=== PATIENT | female | born 1970 | race African-American/Black ===

== ENCOUNTER 2018-09-10 12:05 | Inpatient (IN) | payer OTHER ==
[2018-09-10 14:43] VITALS: BMI 32.1
--- NOTE | 2018-09-10 16:34 | HP ---
COWS - Scale Resting Pulse: 0= MO 80 or Below Sweatin=Flushed/Facial Moisture (Increased facial moisture) Restless Observation: 0= Sits Still Pupil Size: 2= Moderately Dilated (Pupils = 4 mm) Bone or Joint Aches: 1= Mild Discomfort Runny Nose/ Eye Tearin= Nasal Congestion GI Upset > 30mins: 1= Stomach Cramp Tremor Observation: 4= Gross Tremor/Twitching Yawning Observation: 1= 1-2x During Session Anxiety or Irritability: 1=Feels Anxious/Irritable Goose Flesh Skin: 0=Smooth Skin COWS Score: 13 CIWA Score Nausea/Vomitin (C/o abdominal cramping) Muscle Tremors: 4-Moderate,w/Arms Extend Anxiety: 1-Mildly Anxious Agitation: 1-Slight > Activity Paroxysmal Sweats: 3 (Increased facial moisture) Orientation: 0-Oriented Tacttile Disturbances: 0-None Auditory Disturbances: 0-None Visual Disturbances: 0-None Headache: 0-None Present CIWA-Ar Total Score: 12 - Admission Criteria OAS Guidelines: Admission for Medically Managed Detox: Requires at least one of the followin. CIWA greater than 12 2. Seizures within the past 24 hours 3. Delirium tremens within the past 24 hours 4. Hallucinations within the past 24 hours 5. Acute intervention needed for co occurring medical disorder 6. Acute intervention needed for co occurring psychiatric disorder 7. Severe withdrawal that cannot be handled at a lower level of care (continued vomiting, continued diarrhea, abnormal vital signs) requiring intravenous medication and/or fluids 8. Patient presents the following: CIWA greater than 12 Admission Criteria Met: Admission criteria met Admission ROS [facility] Chief Complaint: Having alcohol and heroin withdrawal Allergies/Adverse Reactions: Allergies Allergy/AdvReac Type Severity Reaction Status Date / Time No Known Allergies Allergy Verified 09/10/18 14:34 History of Present Illness: 48 yo presents with heroin and alcohol withdrawal requesting detox. Heroin use began at age 47. Current use x 4 months. (Nasal. No Narcan Kit at home) Alcohol use began at age 16. Current use x 6 months. Cocaine/Crack use began at age 16. Smokes Marijuana use began at age 16. Usage 1-2 x/month. Benzo - Xanax use recent. "A piece of a pill" 1-2 times a month Nicotine use began at age 13. Currently smokes 1 PPD. Denies blackouts, seizures, or overdoses. UTOX + for THC, MEAGAN, FEN, MOP, OXY, BZO PMHx: Denies significant pMH MHHx: Denies depression. Denies thoughts of harming self or others. Search Terms: George Armenta, 1970 Search Date: 09/10/2018 04:33:19 PM The Drug Utilization Report below displays all of the controlled substance prescriptions, if any, that your patient has filled in the last twelve months. The information displayed on this report is compiled from pharmacy submissions to the Department, and accurately reflects the information as submitted by the pharmacies. This report was requested by: Jennifer Mehta | Reference #: [id number] There are no results for the search terms that you entered. Search Terms: George Armenta, 1970 Search Date: 09/10/2018 04:33:41 PM States Searched: [place], [place], [place], [place], [place], [place], [place] The Drug Utilization Report below displays the controlled substance prescriptions, if any, that were dispensed in the indicated state(s). The information displayed on this report is compiled from requests submitted to other states' PMPs, and accurately reflects the information as returned by them. Blank joseph indicate data not provided by other state. This report was requested by: Jennifer Mehta | Reference #: [id number] Exam Limitations: No Limitations - Ebola screening Have you traveled outside of the country in the last 21 days: No Have you had contact with anyone from an Ebola affected area: No Have you been sick,other than usual withdrawal symptoms: No (Denies recent measles exposure) Do you have a fever: No - Review of Systems Constitutional: Chills, Diaphoresis EENT: reports: Nose Congestion Respiratory: reports: No Symptoms reported Cardiac: reports: No Symptoms Reported GI: reports: Nausea : reports: No Symptoms Reported Musculoskeletal: reports: No Symptoms Reported Integumentary: reports: No Symptoms Reported Neuro: reports: No Symptoms reported Endocrine: reports: No Symptoms Reported Hematology: reports: Anemia (Iron deficiencey) Psychiatric: reports: Judgement Intact, Orientated x3, Agitated, Anxious Patient History - Patient Medical History Hx Anemia: Yes Hx Asthma: No Hx Chronic Obstructive Pulmonary Disease (COPD): No Hx Cancer: No Hx Cardiac Disorders: No Hx Congestive Heart Failure: No Hx Hypertension: No Hx Hypercholesterolemia: No Hx Pacemaker: No HX Cerebrovascular Accident: No Hx Seizures: No Hx Dementia: No Hx Diabetes: No Hx Gastrointestinal Disorders: No Hx Liver Disease: No Hx Genitourinary Disorders: No Hx Renal Disease (ESRD): No Hx Thyroid Disease: No Hx Human Immunodeficiency Virus (HIV): No Hx Hepatitis C: No Hx Depression: No - Patient Surgical History Past Surgical History: Yes Hx Neurologic Surgery: No Hx Cataract Extraction: No Hx Cardiac Surgery: No Hx Lung Surgery: No Hx Breast Surgery: No Hx Breast Biopsy: No Hx Abdominal Surgery: No Hx Appendectomy: No Hx Cholecystectomy: No Hx Genitourinary Surgery: No Hx Section: Yes Hx Orthopedic Surgery: No Hx Hysterectomy: No Anesthesia Reaction: No - PPD History Previous Implant?: Yes Documented Results: Negative w/o proof Implanted On Prior R Admission?: No PPD to be Administered?: Yes - Reproductive History Patient is a Female of Child Bearing Age (11 -55 yrs old): Yes Last Menstrual Period: 05/03/12 Patient : No - Smoking Cessation Smoking history: Current every day smoker Have you smoked in the past 12 months: Yes Aproximately how many cigarettes per day: 20 Hx Chewing Tobacco Use: No Initiated information on smoking cessation: Yes 'Breaking Loose' booklet given: 09/10/18 - Substance & Tx. History Hx Alcohol Use: Yes Hx Substance Use: Yes Substance Use Type: Alcohol, Cocaine, Marijuana Hx Substance Use Treatment: Yes (detox, rehab, outpatient) - Substances abused Heroin Substance route: Inhalation Frequency: Daily Amount used: 1-2 bundles Age of first use: 47 Date of last use: 09/10/18 Crack Substance route: Smoking Frequency: Daily Amount used: 200-300 usd daily Age of first use: 16 Date of last use: 09/09/18 Alcohol Substance route: Oral Frequency: Daily Amount used: 1.5 pints patricio, a paxck of beer Age of first use: 16 Date of last use: 09/10/18 Admission Physical Exam BHS - Vital Signs Vital Signs: Vital Signs - 24 hr 09/10/18 14:37 Temperature 97.2 F L Pulse Rate 57 L Respiratory 16 Rate Blood Pressure 126/76 - Physical General Appearance: Yes: Mild Distress, Obese, Tremorous, Sweating, Anxious HEENTM: Yes: EOMI, Hearing grossly Normal, Normocephalic, CHAD (Pupils = 4 mm), Pharynx Normal Respiratory: Yes: Lungs Clear, Normal Breath Sounds, No Respiratory Distress Neck: Yes: No masses,lesions,Nodules, Supple Breast: Yes: Breast Exam Deferred Cardiology: Yes: Regular Rhythm, S1, S2, Bradycardia (HR: 56) Abdominal: Yes: Soft, Increased Bowel Sounds, Protuberent (Increased abdominal adiposity) Genitourinary: Yes: Within Normal Limits Back: Yes: Normal Inspection Musculoskeletal: Yes: full range of Motion, Gait Steady Extremities: Yes: Normal Capillary Refill, Normal Range of Motion, Tremors ( Tremors of hands increase w/ arms elevated) Neurological: Yes: medication aid II-XII NML intact, Alert, Motor Strength 5/5 Integumentary: Yes: Normal Color, Warm Lymphatic: Yes: Within Normal Limits - Diagnostic (1) Alcohol dependence with uncomplicated withdrawal Current Visit: Yes Status: Acute (2) Opioid dependence with withdrawal Current Visit: Yes Status: Acute (3) Nicotine dependence, uncomplicated Current Visit: Yes Status: Chronic Qualifiers: Nicotine product type: cigarettes Qualified Code(s): F17.210 - Nicotine dependence, cigarettes, uncomplicated (4) Cocaine dependence, uncomplicated Current Visit: Yes Status: Acute (5) Obesity (BMI 30.0-34.9) Current Visit: Yes Status: Chronic (6) Bradycardia Current Visit: Yes Status: Chronic Cleared for Admission S - Detox or Rehab [facility] Level of Care: Medically Managed Detox Regimen/Protocol: Methadone/Librium Claeared for Rehab Admission: No Breathalyzer - Breathalyzer Breathalyzer: 0 Urine Drug Screen - Test Device Lot number: [id number] Expiration date: 05/10/20 - Control Is test valid?: Yes - Results Drug screen NEGATIVE: No Urine drug screen results: THC-Marijuana, MEAGAN-Cocaine, FEN-Fentanyl, MOP-Opiates , OXY-Oxycodone, BZO-Benzodiazepines Inpatient Rehab Admission - Rehab Decision to Admit Inpatient rehab admission?: No
[2018-09-11] MEDS ORDERED: METHADONE HCL 10 MG TABLET (FOR DETOX USE ONLY) PO ONE ×2 (00:09→10:00)
[2018-09-11] MEDS ORDERED: ACETAMINOPHEN 325 MG TABLET (FP) PO PRN (00:09)
[2018-09-11] MEDS ORDERED: MAGNESIUM CITRATE 300 ML BOTTLE PO PRN (00:09)
[2018-09-11] MEDS ORDERED: MAG HYDROX/AL HYDROX/SIMETH 30 ML UNIT-DOSE CUP PO PRN (00:09)
[2018-09-11] MEDS ORDERED: NICOTINE POLACRILEX 2 MG GUM BUC PRN (00:09)
[2018-09-11] MEDS ORDERED: MAGNESIUM HYDROX 2400MG/30ML ORAL SUSPENSION 30 ML CUP PO PRN (00:09)
[2018-09-11] MEDS ORDERED: BISMUTH SUBSALICYLATE 524 MG/30 ML UD PO PRN (00:09)
[2018-09-11] MEDS ORDERED: MENTHOL/PHENOL 1 EACH UD MM PRN (00:09)
[2018-09-11] MEDS: chlordiazePOXIDE HCL 10 MG CAPSULE PO PRN (00:54)
[2018-09-11] MEDS: chlordiazePOXIDE HCL 25 MG CAPSULE PO SCH ×3 (06:10→21:30)
[2018-09-11] MEDS: PRENATAL VITAMINS W/ FOLIC ACID TABLET (FP) PO SCH (10:53)
[2018-09-11] MEDS: NICOTINE 21 MG/24 HOURS TOPICAL PATCH TD SCH (10:53)
[2018-09-11] MEDS: IBUPROFEN 400 MG TABLET (FP) PO PRN (10:56)
[2018-09-11] MEDS: METHOCARBAMOL 500 MG TABLET PO PRN (10:56)
--- NOTE | 2018-09-11 12:49 | PN ---
[facility] CIWA - CIWA Score Nausea/Vomitin-Mild Nausea/No Vomiting Muscle Tremors: 2 Anxiety: 1-Mildly Anxious Agitation: 1-Slight > Activity Paroxysmal Sweats: 1-Minimal Palms Moist Orientation: 0-Oriented Tacttile Disturbances: 0-None Auditory Disturbances: 0-None Visual Disturbances: 0-None Headache: 1-Very Mild CIWA-Ar Total Score: 7 S COWS - Scale Resting Pulse: 1= [place] 81-100 Sweatin= Chills/Flushing Restless Observation: 1= Difficult to Sit Still Pupil Size: 0= Normal to Room Light Bone or Joint Aches: 1= Mild Discomfort Runny Nose/ Eye Tearin= Nasal Congestion GI Upset > 30mins: 1= Stomach Cramp Tremor Observation of Outstretched Hands: 0= None Yawning Observation: 0= None Anxiety or Irritability: 0= None Goose Flesh Skin: 0=Smooth Skin COWS Score: 6 S Progress Note (SOAP) Subjective: pt here for polysubstance use- pt is on alcohol and heroin detox protocols O: Vital Signs - 24 hr 09/10/18 09/11/18 09/11/18 14:37 00:29 03:30 Temperature 97.2 F L 98.5 F Pulse Rate 57 L 60 Respiratory 16 18 18 Rate Blood Pressure 126/76 134/89 09/11/18 09/11/18 06:09 09:05 Temperature 97 F L 97.2 F L Pulse Rate 41 L 53 L Respiratory 18 16 Rate Blood Pressure 152/92 132/82 a/p: continue alcohol and heroin detox protocols- pt to consider suboxone treatment
--- NOTE | 2018-09-11 13:46 | EKG ---
Test Reason : Blood Pressure : / mmHG Vent. Rate : 045 BPM Atrial Rate : 045 BPM P-R Int : 180 ms QRS Dur : 092 ms QT Int : 420 ms P-R-T Axes : 064 071 -04 degrees QTc Int : 363 ms SINUS BRADYCARDIA POSSIBLE LEFT ATRIAL ENLARGEMENT SEPTAL INFARCT , AGE UNDETERMINED T WAVE ABNORMALITY, CONSIDER LATERAL ISCHEMIA ABNORMAL ECG WHEN COMPARED WITH ECG OF 27-JUN-1997 11:52, SEPTAL INFARCT IS NOW PRESENT NONSPECIFIC T WAVE ABNORMALITY, WORSE IN INFERIOR LEADS T WAVE INVERSION NOW EVIDENT IN LATERAL LEADS Confirmed by MD BREEZY, ISSA ([id number]) on 09/11/2018 1:46:15 PM Referred By: Confirmed By:ISSA TIJERINA MD
[2018-09-11] MEDS: cloNIDine HCL 0.1 MG TABLET PO PRN (21:30)
[2018-09-11] MEDS: MELATONIN 5 MG TABLETS PO PRN (21:30)
[2018-09-11] MEDS: THIAMINE HCL 100 MG TABLET (FP) PO SCH (21:30)
[2018-09-12] MEDS: chlordiazePOXIDE HCL 10 MG CAPSULE PO PRN (01:35)
[2018-09-12] MEDS: METHOCARBAMOL 500 MG TABLET PO PRN (01:35)
[2018-09-12] MEDS: cloNIDine HCL 0.1 MG TABLET PO PRN ×2 (02:34→07:03)
[2018-09-12] MEDS: chlordiazePOXIDE 5 MG CAPSULE PO SCH ×3 (05:01→22:13)
[2018-09-12] MEDS ORDERED: METHADONE HCL 5 MG TABLET (FOR DETOX USE ONLY) ONE (09:13)
[2018-09-12] MEDS ORDERED: METHADONE HCL 10 MG TABLET (FOR DETOX USE ONLY) ONE (09:13)
[2018-09-12] MEDS ORDERED: METHADONE (DETOX) 20 MG, METHADONE (DETOX) 5 MG PO ONE (10:00)
[2018-09-12 10:05] LABS: HEMATOCRIT 44.6 % (32.4-45.2); HEMOGLOBIN 14.9 GM/dL (10.7-15.3); MCHC 33.4 g/dl (32.0-36.0); MEAN CELL VOLUME 92.8 fl (80-96); MEAN PLT VOLUME 8.2 fl (7.5-11.1); PLATELET COUNT 328 K/MM3 (134-434); RBC 4.81 M/mm3 (3.60-5.2); RDW 12.8 % (11.6-15.6); WHITE BLOOD COUNT 5.4 K/mm3 (4.0-10.0)
[2018-09-12 10:14] LABS: ALBUMIN 3.5 g/dl (3.4-5.0); BILIRUBIN,TOTAL 0.8 mg/dL (0.2-1); BLOOD UREA NITROGEN 5.1 mg/dL (7-18); CALCIUM 9.5 mg/dL (8.5-10.1); CREATININE 0.6 mg/dL (0.55-1.3); POTASSIUM 3.8 mmol/L (3.5-5.1); TOT PROT 7.6 g/dl (6.4-8.2)
[2018-09-12] MEDS: PRENATAL VITAMINS W/ FOLIC ACID TABLET (FP) PO SCH (10:28)
[2018-09-12] MEDS: NICOTINE 21 MG/24 HOURS TOPICAL PATCH TD SCH (10:29)
--- NOTE | 2018-09-12 16:36 | PN ---
S CIWA - CIWA Score Nausea/Vomitin-No Nausea/No Vomiting Muscle Tremors: 3 Anxiety: 3 Agitation: 1-Slight > Activity Paroxysmal Sweats: No Perspiration Orientation: 0-Oriented Tacttile Disturbances: 2-Mild Itch/Numbness/Burn Auditory Disturbances: 1-Very Mild Visual Disturbances: 3-Moderate Sensitivity Headache: 0-None Present CIWA-Ar Total Score: 13 S COWS - Scale Resting Pulse: 0= [place] 80 or Below Sweatin= No chills or Flushing Restless Observation: 1= Difficult to Sit Still Pupil Size: 0= Normal to Room Light Bone or Joint Aches: 2= Severe Diffuse Aches Runny Nose/ Eye Tearin= None GI Upset > 30mins: 0= None Tremor Observation of Outstretched Hands: 2= Slight Tremor Visible Yawning Observation: 1= 1-2x During Session Anxiety or Irritability: 2=Irritable/Anxious Goose Flesh Skin: 3=Piloerection COWS Score: 11 S Progress Note (SOAP) Subjective: Body Aches, Tremors, Anxious. Objective: PATIENT A & O X 3, OBSERVED AMBULATING ON UNIT UNASSISTED. IN NO ACUTE DISTRESS. 09/12/18 16:34 Vital Signs Temperature 98.1 F 09/12/18 13:37 Pulse Rate 61 09/12/18 13:37 Respiratory Rate 18 09/12/18 13:37 Blood Pressure 151/90 09/12/18 13:37 O2 Sat by Pulse Oximetry (%) PATIENT REPORTS HISTORY OF HTN, BUT DENIES HISTORY OF TREATMENT FOR HYPERTENSION. Laboratory Tests 09/12/18 09/12/18 09/12/18 07:50 07:50 07:50 WBC 5.4 RBC 4.81 Hgb 14.9 Hct 44.6 D MCV 92.8 MCH 31.0 D MCHC 33.4 RDW 12.8 D Plt Count 328 MPV 8.2 Sodium 140 Potassium 3.8 Chloride 107 Carbon Dioxide 26 Anion Gap 8 BUN 5.1 L Creatinine 0.6 Est GFR (CKD-EPI)AfAm 124.05 Est GFR (CKD-EPI)NonAf 107.03 Random Glucose 79 Calcium 9.5 Total Bilirubin 0.8 AST 17 ALT 15 Alkaline Phosphatase 86 Total Protein 7.6 Albumin 3.5 RPR Titer Nonreactive LABS NOTED. Assessment: 09/12/18 16:35 WITHDRAWAL SYMPTOMS. HYPERTENSION. Plan: CONTINUE DETOX. CLONIDINE, 0.1 MG PO BID FOR ELEVATED BLOOD PRESSURE AND FOR WITHDRAWAL SYMPTOMS.
[2018-09-12] MEDS: cloNIDine HCL 0.1 MG TABLET PO SCH (22:13)
[2018-09-12] MEDS: THIAMINE HCL 100 MG TABLET (FP) PO SCH (22:13)
[2018-09-12] MEDS: MELATONIN 5 MG TABLETS PO PRN (22:15)
[2018-09-13] MEDS: chlordiazePOXIDE HCL 10 MG CAPSULE PO SCH ×3 (06:29→22:31)
[2018-09-13] MEDS: IBUPROFEN 400 MG TABLET (FP) PO PRN (06:30)
[2018-09-13] MEDS: METHOCARBAMOL 500 MG TABLET PO PRN ×2 (06:30→22:40)
[2018-09-13] MEDS ORDERED: ONDANSETRON *ODT* 4 MG TABLET SL PRN (07:42)
[2018-09-13] MEDS ORDERED: METHADONE HCL 10 MG TABLET (FOR DETOX USE ONLY) PO ONE (10:00)
[2018-09-13] MEDS: chlordiazePOXIDE HCL 10 MG CAPSULE PO PRN ×2 (10:18→22:31)
[2018-09-13] MEDS ORDERED: TRIMETHOBENZAMIDE HCL 200MG/2ML INJ IM ONE (11:14)
[2018-09-13] MEDS ORDERED: METHADONE DETOX 10 MG/1 ML [20ML VIAL] IM ONE (13:24)
[2018-09-13] MEDS ORDERED: DICYCLOMINE HCL 10 MG CAPSULE PO ONE (13:25)
[2018-09-13] MEDS: PRENATAL VITAMINS W/ FOLIC ACID TABLET (FP) PO SCH (13:41)
[2018-09-13] MEDS: NICOTINE 21 MG/24 HOURS TOPICAL PATCH TD SCH (15:31)
[2018-09-13] MEDS: cloNIDine HCL 0.1 MG TABLET PO SCH ×2 (15:31→22:31)
--- NOTE | 2018-09-13 15:45 | PN ---
[facility] CIWA - CIWA Score Nausea/Vomitin Muscle Tremors: 2 Anxiety: 2 Agitation: 2 Paroxysmal Sweats: 1-Minimal Palms Moist Orientation: 0-Oriented Tacttile Disturbances: 0-None Auditory Disturbances: 0-None Visual Disturbances: 0-None Headache: 1-Very Mild CIWA-Ar Total Score: 10 BHS COWS - Scale Resting Pulse: 0= [place] 80 or Below Sweatin= Chills/Flushing Restless Observation: 0= Sits Still Pupil Size: 0= Normal to Room Light Bone or Joint Aches: 1= Mild Discomfort Runny Nose/ Eye Tearin= Nasal Congestion GI Upset > 30mins: 3= Vomiting/Diarrhea Tremor Observation of Outstretched Hands: 1= Tremor [place], Not Seen Yawning Observation: 2= >3x During Session Anxiety or Irritability: 1=Feels Anxious/Irritable Goose Flesh Skin: 0=Smooth Skin COWS Score: 10 S Progress Note (SOAP) Subjective: vomiting after lunch limited food and fluid toleration hold methadone 20 mg po begin methadone 10 mg IM now with zofran 8 mg po q6h prn bentyl 20 mg po x 1 Objective: 09/13/18 15:44 Vital Signs Temperature 97.1 F L 09/13/18 13:44 Pulse Rate 56 L 09/13/18 13:44 Respiratory Rate 18 09/13/18 13:44 Blood Pressure 148/78 09/13/18 13:44 O2 Sat by Pulse Oximetry (%) Laboratory Last Values WBC 5.4 K/mm3 (4.0-10.0) 09/12/18 07:50 RBC 4.81 M/mm3 (3.60-5.2) 09/12/18 07:50 Hgb 14.9 GM/dL (10.7-15.3) 09/12/18 07:50 Hct 44.6 % (32.4-45.2) D 09/12/18 07:50 MCV 92.8 fl (80-96) 09/12/18 07:50 MCH 31.0 pg (25.7-33.7) D 09/12/18 07:50 MCHC 33.4 g/dl (32.0-36.0) 09/12/18 07:50 RDW 12.8 % (11.6-15.6) D 09/12/18 07:50 Plt Count 328 K/MM3 (134-434) 09/12/18 07:50 MPV 8.2 fl (7.5-11.1) 09/12/18 07:50 Sodium 140 mmol/L (136-145) 09/12/18 07:50 Potassium 3.8 mmol/L (3.5-5.1) 09/12/18 07:50 Chloride 107 mmol/L (98-107) 09/12/18 07:50 Carbon Dioxide 26 mmol/L (21-32) 09/12/18 07:50 Anion Gap 8 MMOL/L (8-16) 09/12/18 07:50 BUN 5.1 mg/dL (7-18) L 09/12/18 07:50 Creatinine 0.6 mg/dL (0.55-1.3) 09/12/18 07:50 Est GFR (CKD-EPI)AfAm 124.05 09/12/18 07:50 Est GFR (CKD-EPI)NonAf 107.03 09/12/18 07:50 Random Glucose 79 mg/dL (74-106) 09/12/18 07:50 Calcium 9.5 mg/dL (8.5-10.1) 09/12/18 07:50 Total Bilirubin 0.8 mg/dL (0.2-1) 09/12/18 07:50 AST 17 U/L (15-37) 09/12/18 07:50 ALT 15 U/L (13-61) 09/12/18 07:50 Alkaline Phosphatase 86 U/L (45-117) 09/12/18 07:50 Total Protein 7.6 g/dl (6.4-8.2) 09/12/18 07:50 Albumin 3.5 g/dl (3.4-5.0) 09/12/18 07:50 RPR Titer Nonreactive (NONREACTIVE) 09/12/18 07:50 lab noted Assessment: 09/13/18 15:44 alcohol and opiate withdrawal sx Plan: continue alcohol and opiate detox discontinue motrin begin bentyl 20 mg po prn q6h
[2018-09-13] MEDS: THIAMINE HCL 100 MG TABLET (FP) PO SCH (22:31)
[2018-09-13] MEDS: DICYCLOMINE HCL 10 MG CAPSULE PO PRN (22:33)
[2018-09-13] MEDS: MELATONIN 5 MG TABLETS PO PRN (22:41)
[2018-09-13] MEDS: ONDANSETRON *ODT* 4 MG TABLET SL PRN (22:50)
[2018-09-14] MEDS: ACETAMINOPHEN 325 MG TABLET (FP) PO PRN ×2 (02:45→09:41)
[2018-09-14] MEDS ORDERED: chlordiazePOXIDE HCL 10 MG CAPSULE PO ONE (05:00)
[2018-09-14] MEDS: ONDANSETRON *ODT* 4 MG TABLET SL PRN ×2 (08:04→18:22)
[2018-09-14] MEDS: METHOCARBAMOL 500 MG TABLET PO PRN (08:05)
[2018-09-14] MEDS ORDERED: METHADONE HCL 10 MG TABLET (FOR DETOX USE ONLY) ONE (08:39)
[2018-09-14] MEDS ORDERED: METHADONE HCL 5 MG TABLET (FOR DETOX USE ONLY) ONE (08:40)
[2018-09-14] MEDS ORDERED: TRIMETHOBENZAMIDE HCL 200MG/2ML INJ IM PRN (09:34)
[2018-09-14] MEDS ORDERED: traZODone HCL 50 MG TABLET (FP) PO PRN (09:35)
[2018-09-14] MEDS: DICYCLOMINE HCL 10 MG CAPSULE PO PRN ×2 (09:39→18:22)
[2018-09-14] MEDS: cloNIDine HCL 0.1 MG TABLET PO SCH ×2 (09:40→21:34)
[2018-09-14] MEDS ORDERED: METHADONE (DETOX) 10 MG, METHADONE (DETOX) 5 MG PO ONE (10:00)
[2018-09-14] MEDS: NICOTINE 21 MG/24 HOURS TOPICAL PATCH TD SCH (10:11)
[2018-09-14] MEDS: PRENATAL VITAMINS W/ FOLIC ACID TABLET (FP) PO SCH (10:12)
[2018-09-14] MEDS: SENNOSIDES/DOCUSATE COMBO (SENNA PLUS) TABLET (UD) PO SCH ×2 (11:01→22:20)
--- NOTE | 2018-09-14 14:49 | PN ---
S CIWA - CIWA Score Nausea/Vomitin Muscle Tremors: None Anxiety: 3 Agitation: 2 Paroxysmal Sweats: No Perspiration Orientation: 0-Oriented Tacttile Disturbances: 1-Very Mild Itch/Numbness Auditory Disturbances: 0-None Visual Disturbances: 2-Mild Sensitivity Headache: 0-None Present CIWA-Ar Total Score: 13 BHS COWS - Scale Resting Pulse: 0= [place] 80 or Below Sweatin= Chills/Flushing Restless Observation: 1= Difficult to Sit Still Pupil Size: 0= Normal to Room Light Bone or Joint Aches: 0= None Runny Nose/ Eye Tearin= None GI Upset > 30mins: 3= Vomiting/Diarrhea Tremor Observation of Outstretched Hands: 0= None Yawning Observation: 1= 1-2x During Session Anxiety or Irritability: 2=Irritable/Anxious Goose Flesh Skin: 3=Piloerection COWS Score: 11 S Progress Note (SOAP) Subjective: Vomiting, Interrupted Sleep, Constipation, Anxious. Objective: PATIENT A & O X 3, OBSERVED AMBULATING ON UNIT UNASSISTED. IN NO ACUTE DISTRESS. 09/14/18 14:47 Vital Signs Temperature 97.7 F 09/14/18 13:44 Pulse Rate 62 09/14/18 13:44 Respiratory Rate 18 09/14/18 13:44 Blood Pressure 113/77 09/14/18 13:44 O2 Sat by Pulse Oximetry (%) Laboratory Tests 09/12/18 09/12/18 09/12/18 07:50 07:50 07:50 WBC 5.4 RBC 4.81 Hgb 14.9 Hct 44.6 D MCV 92.8 MCH 31.0 D MCHC 33.4 RDW 12.8 D Plt Count 328 MPV 8.2 Sodium 140 Potassium 3.8 Chloride 107 Carbon Dioxide 26 Anion Gap 8 BUN 5.1 L Creatinine 0.6 Est GFR (CKD-EPI)AfAm 124.05 Est GFR (CKD-EPI)NonAf 107.03 Random Glucose 79 Calcium 9.5 Total Bilirubin 0.8 AST 17 ALT 15 Alkaline Phosphatase 86 Total Protein 7.6 Albumin 3.5 RPR Titer Nonreactive LABS NOTED. Assessment: 09/14/18 14:47 WITHDRAWAL SYMPTOMS. Plan: CONTINUE DETOX. INCREASE DAILY PO WATER INTAKE. PRN TIGAN IM FOR NAUSEA / VOMITING. COLACE-SENNA BID FOR CONSTIPATION. PRN HS TRAZODONE PO FOR INSOMNIA.
[2018-09-14] MEDS: MELATONIN 5 MG TABLETS PO PRN (21:34)
[2018-09-14] MEDS: THIAMINE HCL 100 MG TABLET (FP) PO SCH (21:34)
[2018-09-15] MEDS: ONDANSETRON *ODT* 4 MG TABLET SL PRN (01:43)
[2018-09-15 06:16] VITALS: BP 145/90; PULSE 61; TEMP 100.3
[2018-09-15] MEDS: DICYCLOMINE HCL 10 MG CAPSULE PO PRN (07:18)
[2018-09-15] MEDS: ACETAMINOPHEN 325 MG TABLET (FP) PO PRN (07:18)
[2018-09-15] MEDS ORDERED: METHADONE HCL 10 MG TABLET (FOR DETOX USE ONLY) PO ONE (10:00)
[2018-09-16] MEDS ORDERED: METHADONE HCL 5 MG TABLET (FOR DETOX USE ONLY) PO ONE (06:00)
== END 2018-09-15 07:42 | disposition home or self-care (01) | DRG 773 ==
LOC: YASAS 12:05 → Y3N 22:55
PROVIDERS: ADMIT Surgery; ATTEND Surgery
PROC: HZ2ZZZZ Detoxification Services for Substance Abuse Treatment (ICD-10-PCS; principal; 2018-09-10)
DX: F10.230 Alcohol dependence with withdrawal, uncomplicated (principal); F11.23 Opioid dependence with withdrawal; F14.20 Cocaine dependence, uncomplicated; F12.10 Cannabis abuse, uncomplicated; F17.210 Nicotine dependence, cigarettes, uncomplicated; D64.9 Anemia, unspecified; I10 Essential (primary) hypertension; R00.1 Bradycardia, unspecified; E66.9 Obesity, unspecified; Z68.32 Body mass index [BMI] 32.0-32.9, adult
CPT/HCPCS: 36415; 80053; 85027; 86593; 93005; 93010; J0735; Q0162

== ENCOUNTER 2018-12-19 10:25 | Inpatient (IN) | payer OTHER ==
[2018-12-19 11:02] VITALS: BMI 40.4
--- NOTE | 2018-12-19 12:08 | HP ---
COWS - Scale Resting Pulse: 0= [place] 80 or Below Sweatin=Flushed/Facial Moisture Restless Observation: 1= Difficult to Sit Still Pupil Size: 1= Pupils >than Normal Bone or Joint Aches: 2= Severe Diffuse Aches Runny Nose/ Eye Tearin= Runny Nose/Eyes GI Upset > 30mins: 1= Stomach Cramp Tremor Observation: 2= Slight Tremor Visible Yawning Observation: 1= 1-2x During Session Anxiety or Irritability: 1=Feels Anxious/Irritable Goose Flesh Skin: 0=Smooth Skin COWS Score: 13 CIWA Score Nausea/Vomitin Muscle Tremors: 2 Anxiety: 3 Agitation: 2 Paroxysmal Sweats: 2 Orientation: 0-Oriented Tacttile Disturbances: 0-None Auditory Disturbances: 0-None Visual Disturbances: 0-None Headache: 1-Very Mild CIWA-Ar Total Score: 12 - Admission Criteria [facility]AS[facility] Guidelines: Admission for Medically Managed Detox: Requires at least one of the followin. CIWA greater than 12 2. Seizures within the past 24 hours 3. Delirium tremens within the past 24 hours 4. Hallucinations within the past 24 hours 5. Acute intervention needed for co occurring medical disorder 6. Acute intervention needed for co occurring psychiatric disorder 7. Severe withdrawal that cannot be handled at a lower level of care (continued vomiting, continued diarrhea, abnormal vital signs) requiring intravenous medication and/or fluids 8. Admitting History and Physical - Admission Chief Complaint: " I want to get off drugs." History of Present Illness: 48 year old black female with history of alcohol dependence and opioid dependence with withdrawals. She is drinking 1/5 of vodka daily, last drank last night. She is using 1 bundle of heroin daily, last used this morning at 2 AM. She smokes ciggarettes 6 per day for many years, last smoked this morning. PMH: None except anemia Psurg: Fibroid removal and 19 years ago. Psych: None She is living with daughter who is being evicted from her home. - Past Medical History ...LMP: 05/03/12 - Smoking History Smoking history: Current every day smoker Have you smoked in the past 12 months: Yes Aproximately how many cigarettes per day: 20 If you are a former smoker, when did you quit?: 2006 - Alcohol/Substance Use Hx Alcohol Use: Yes Admission ROS S - HPI Chief Complaint: " I want to get off drugs." Allergies/Adverse Reactions: Allergies Allergy/AdvReac Type Severity Reaction Status Date / Time No Known Allergies Allergy Verified 12/19/18 10:56 History of Present Illness: 48 year old black female with history of alcohol dependence and opioid dependence with withdrawals. She is drinking 1/5 of vodka daily, last drank last night. She is using 1 bundle of heroin daily, last used this morning at 2 AM. She smokes ciggarettes 6 per day for many years, last smoked this morning. PMH: None except anemia Psurg: Fibroid removal and 19 years ago. Psych: None She is living with daughter who is being evicted from her home. - Ebola screening Have you traveled outside of the country in the last 21 days: No Have you had contact with anyone from an Ebola affected area: No Have you been sick,other than usual withdrawal symptoms: No Do you have a fever: No - Review of Systems Constitutional: Chills EENT: reports: No Symptoms Reported Respiratory: reports: No Symptoms reported Cardiac: reports: No Symptoms Reported GI: reports: No Symptoms Reported : reports: No Symptoms Reported Musculoskeletal: reports: Muscle Pain Integumentary: reports: No Symptoms Reported Neuro: reports: No Symptoms reported Endocrine: reports: No Symptoms Reported Hematology: reports: No Symptoms Reported Psychiatric: reports: Judgement Intact, Mood/Affect Appropiate, Orientated x3 Other Systems: Reviewed and Negative Patient History - Patient Medical History Hx Anemia: Yes Hx Asthma: No Hx Chronic Obstructive Pulmonary Disease (COPD): No Hx Cancer: No Hx Cardiac Disorders: No Hx Congestive Heart Failure: No Hx Hypertension: No Hx Hypercholesterolemia: No Hx Pacemaker: No HX Cerebrovascular Accident: No Hx Seizures: No Hx Dementia: No Hx Diabetes: No Hx Gastrointestinal Disorders: No Hx Liver Disease: No Hx Genitourinary Disorders: No Hx Sexually Transmitted Disorders: No Hx Renal Disease (ESRD): No Hx Thyroid Disease: No Hx Human Immunodeficiency Virus (HIV): No Hx Hepatitis C: No Hx Depression: No Hx Suicide Attempt: No Hx Schizophrenia: No - Patient Surgical History Past Surgical History: Yes Hx Neurologic Surgery: No Hx Cataract Extraction: No Hx Cardiac Surgery: No Hx Lung Surgery: No Hx Breast Surgery: No Hx Breast Biopsy: No Hx Abdominal Surgery: No Hx Appendectomy: No Hx Cholecystectomy: No Hx Genitourinary Surgery: No Hx Section: Yes Hx Orthopedic Surgery: No Hx Hysterectomy: No Anesthesia Reaction: No - PPD History Previous Implant?: Yes Documented Results: Negative w/proof Date: 09/13/18 - Reproductive History Last Menstrual Period: 05/03/12 - Smoking Cessation Smoking history: Current every day smoker Have you smoked in the past 12 months: Yes Aproximately how many cigarettes per day: 20 If you are a former smoker, when did you quit?: 2005 Hx Chewing Tobacco Use: No Initiated information on smoking cessation: Yes 'Breaking Loose' booklet given: 12/19/18 - Substances abused Oxycontin Substance route: Inhalation Frequency: Daily Amount used: 1-2 bundles Age of first use: 47 Date of last use: 12/19/18 Crack Substance route: Smoking Frequency: Daily Amount used: $150 Age of first use: 16 Date of last use: 12/18/18 Ephedrine Substance route: Oral Frequency: Daily Amount used: 5th patricio/vodka Age of first use: 16 Date of last use: 12/18/18 Alcohol Other (specify): 1/5 vodka daily Substance route: Oral Frequency: Daily Amount used: 5th patricio/vodka Age of first use: 16 Date of last use: 12/18/18 Heroin Substance route: Inhalation Frequency: Daily Amount used: 1-2 bundles Age of first use: 47 Date of last use: 12/19/18 Admission Physical Exam BHS - Vital Signs Vital Signs: Vital Signs - 24 hr 12/19/18 12/19/18 10:57 11:51 Temperature 97.5 F L 97.5 F L Pulse Rate 60 60 Respiratory 18 18 Rate Blood Pressure 184/103 H 184/103 H - Physical General Appearance: Yes: Mild Distress HEENTM: Yes: EOMI, Hearing grossly Normal, Normocephalic, Normal Voice, CHAD, Pharynx Normal, Tm's normal Respiratory: Yes: Chest Non-Tender, Lungs Clear, Normal Breath Sounds, No Respiratory Distress, No Accessory Muscle Use Neck: Yes: No masses,lesions,Nodules, Supple, Trachea in good position Breast: Yes: Breast Exam Deferred Cardiology: Yes: Regular Rhythm, Regular Rate, S1, S2 Abdominal: Yes: Normal Bowel Sounds, Non Tender, Soft, Protuberent, Surgical Scar (from fibroid surgery) Genitourinary: Yes: Within Normal Limits Back: Yes: Normal Inspection Musculoskeletal: Yes: full range of Motion, Gait Steady, Pelvis Stable Extremities: Yes: Normal Capillary Refill, Normal Inspection, Normal Range of Motion, Non-Tender Neurological: Yes: mixing machine feeder II-XII NML intact, Fully Oriented, Alert, Motor Strength 5/5, Normal Mood/Affect Integumentary: Yes: Normal Color, Warm Lymphatic: Yes: Within Normal Limits - Diagnostic (1) Alcohol dependence with uncomplicated withdrawal Current Visit: Yes Status: Acute (2) Cocaine dependence, uncomplicated Current Visit: Yes Status: Acute (3) Hypertension Current Visit: Yes Status: Acute (4) Opioid dependence with withdrawal Current Visit: Yes Status: Acute (5) Nicotine dependence, uncomplicated Current Visit: Yes Status: Chronic Qualifiers: Nicotine product type: cigarettes Qualified Code(s): F17.210 - Nicotine dependence, cigarettes, uncomplicated (6) Obesity (BMI 30.0-34.9) Current Visit: Yes Status: Chronic Screened but not Admitted - Documentation of Visit Screened but not Admitted: No Breathalyzer - Breathalyzer Breathalyzer: 0 (last used last night) Urine Drug Screen - Test Device Lot number: [id number] Expiration date: 08/09/20 - Control Is test valid?: Yes - Results Drug screen NEGATIVE: No Urine drug screen results: THC-Marijuana, MEAGAN-Cocaine, MOP-Opiates, OXY- Oxycodone, BZO-Benzodiazepines Inpatient Rehab Admission - Rehab Decision to Admit Inpatient rehab admission?: No
[2018-12-19] MEDS ORDERED: MENTHOL/PHENOL 1 EACH UD MM PRN (12:14)
[2018-12-19] MEDS ORDERED: MAGNESIUM CITRATE 300 ML BOTTLE PO PRN (12:14)
[2018-12-19] MEDS ORDERED: ACETAMINOPHEN 325 MG TABLET (FP) PO PRN (12:14)
[2018-12-19] MEDS ORDERED: IBUPROFEN 400 MG TABLET (FP) PO PRN (12:14)
[2018-12-19] MEDS ORDERED: MELATONIN 5 MG TABLETS PO PRN (12:14)
[2018-12-19] MEDS ORDERED: cloNIDine HCL 0.1 MG TABLET PO PRN (12:14)
[2018-12-19] MEDS ORDERED: METHADONE HCL 10 MG TABLET (FOR DETOX USE ONLY) PO ONE (12:14)
[2018-12-19] MEDS ORDERED: MAGNESIUM HYDROX 2400MG/30ML ORAL SUSPENSION 30 ML CUP PO PRN (12:14)
[2018-12-19] MEDS ORDERED: chlordiazePOXIDE HCL 25 MG CAPSULE PO PRN (12:14)
[2018-12-19] MEDS ORDERED: MAG HYDROX/AL HYDROX/SIMETH 30 ML UNIT-DOSE CUP PO PRN (12:14)
[2018-12-19] MEDS ORDERED: BISMUTH SUBSALICYLATE 524 MG/30 ML UD PO PRN (12:14)
[2018-12-19 17:35] LABS: HEMATOCRIT 41.2 % (32.4-45.2); HEMOGLOBIN 14.1 GM/dL (10.7-15.3); MCH 32.3 pg (25.7-33.7); MCHC 34.2 g/dl (32.0-36.0); MEAN CELL VOLUME 94.3 fl (80-96); MEAN PLT VOLUME 8.5 fl (7.5-11.1); PLATELET COUNT 264 K/MM3 (134-434); RBC 4.37 M/mm3 (3.60-5.2); RDW 13.2 % (11.6-15.6)
[2018-12-19 17:44] LABS: ALBUMIN 3.4 g/dl (3.4-5.0); BILIRUBIN,TOTAL 0.3 mg/dL (0.2-1); BLOOD UREA NITROGEN 5.4 mg/dL (7-18); CREATININE 0.8 mg/dL (0.55-1.3); POTASSIUM 4.4 mmol/L (3.5-5.1); TOT PROT 7.2 g/dl (6.4-8.2)
[2018-12-19] MEDS: chlordiazePOXIDE HCL 25 MG CAPSULE PO SCH ×2 (17:48→22:04)
[2018-12-19] MEDS: THIAMINE HCL 100 MG TABLET (FP) PO SCH (21:31)
[2018-12-20] MEDS: chlordiazePOXIDE HCL 25 MG CAPSULE PO SCH ×4 (05:23→23:29)
[2018-12-20] MEDS: hydrOXYzine PAMOATE 25 MG CAPSULE (FP) PO PRN (05:24)
[2018-12-20] MEDS: METHOCARBAMOL 500 MG TABLET PO PRN (06:28)
[2018-12-20] MEDS ORDERED: METHADONE HCL 10 MG TABLET (FOR DETOX USE ONLY) ONE (09:16)
[2018-12-20] MEDS ORDERED: METHADONE HCL 5 MG TABLET (FOR DETOX USE ONLY) ONE (09:16)
[2018-12-20] MEDS ORDERED: METHADONE (DETOX) 20 MG, METHADONE (DETOX) 5 MG PO ONE (10:00)
[2018-12-20] MEDS: NICOTINE 7 MG/24 HOURS TOPICAL PATCH TD SCH (10:15)
[2018-12-20] MEDS: PRENATAL VITAMINS W/ FOLIC ACID TABLET (FP) PO SCH (10:15)
[2018-12-20] MEDS ORDERED: FLU VACCINE QUAD 60 MCG/0.5 ML (MDV 19-20) IM ONE (12:00)
--- NOTE | 2018-12-20 13:31 | PN ---
BHS COWS - Scale Resting Pulse: 0= [place] 80 or Below Sweatin= Chills/Flushing Restless Observation: 1= Difficult to Sit Still Pupil Size: 0= Normal to Room Light Bone or Joint Aches: 2= Severe Diffuse Aches Runny Nose/ Eye Tearin= Nasal Congestion GI Upset > 30mins: 1= Stomach Cramp Tremor Observation of Outstretched Hands: 2= Slight Tremor Visible Yawning Observation: 2= >3x During Session Anxiety or Irritability: 2=Irritable/Anxious Goose Flesh Skin: 0=Smooth Skin COWS Score: 12 BHS Progress Note (SOAP) Subjective: chills sweats irritable agitation interrupted sleep body aches Objective: 12/20/18 13:30 Vital Signs Temperature 98.1 F 12/20/18 09:57 Pulse Rate 60 12/20/18 09:57 Respiratory Rate 18 12/20/18 09:57 Blood Pressure 141/60 12/20/18 09:57 O2 Sat by Pulse Oximetry (%) Laboratory Tests 12/19/18 12/19/18 12/19/18 11:53 14:10 14:10 WBC 5.0 RBC 4.37 Hgb 14.1 Hct 41.2 MCV 94.3 MCH 32.3 MCHC 34.2 RDW 13.2 Plt Count 264 MPV 8.5 Sodium 142 Potassium 4.4 Chloride 106 Carbon Dioxide 32 Anion Gap 5 L BUN 5.4 L Creatinine 0.8 Est GFR (CKD-EPI)AfAm 100.33 Est GFR (CKD-EPI)NonAf 86.57 Random Glucose 87 Calcium 9.0 Total Bilirubin 0.3 AST 16 ALT 15 Alkaline Phosphatase 93 Total Protein 7.2 Albumin 3.4 POC Urine HCG, Qual Negative RPR Titer 12/19/18 14:10 WBC RBC Hgb Hct MCV MCH MCHC RDW Plt Count MPV Sodium Potassium Chloride Carbon Dioxide Anion Gap BUN Creatinine Est GFR (CKD-EPI)AfAm Est GFR (CKD-EPI)NonAf Random Glucose Calcium Total Bilirubin AST ALT Alkaline Phosphatase Total Protein Albumin POC Urine HCG, Qual RPR Titer Nonreactive labs noted aaox3 ambulating no acute distress Assessment: 12/20/18 13:31 withdrawals Plan: continue detox increase fluids
[2018-12-20] MEDS ORDERED: TRIMETHOBENZAMIDE HCL 200MG/2ML INJ IM ONE (21:19)
[2018-12-20] MEDS: THIAMINE HCL 100 MG TABLET (FP) PO SCH (23:30)
[2018-12-21] MEDS: chlordiazePOXIDE HCL 25 MG CAPSULE PO SCH ×4 (06:29→23:45)
[2018-12-21] MEDS: METHOCARBAMOL 500 MG TABLET PO PRN (06:30)
[2018-12-21] MEDS: ACETAMINOPHEN 325 MG TABLET (FP) PO PRN (06:30)
[2018-12-21] MEDS: ONDANSETRON *ODT* 4 MG TABLET SL PRN ×2 (06:30→18:12)
[2018-12-21] MEDS ORDERED: METHADONE HCL 10 MG TABLET (FOR DETOX USE ONLY) PO ONE (10:00)
[2018-12-21] MEDS: PRENATAL VITAMINS W/ FOLIC ACID TABLET (FP) PO SCH (10:39)
[2018-12-21] MEDS: NICOTINE 7 MG/24 HOURS TOPICAL PATCH TD SCH (10:41)
--- NOTE | 2018-12-21 13:33 | PN ---
[facility] CIWA - CIWA Score Nausea/Vomitin-No Nausea/No Vomiting Muscle Tremors: 3 Anxiety: 1-Mildly Anxious Agitation: 2 Paroxysmal Sweats: 2 Orientation: 0-Oriented Tacttile Disturbances: 0-None Auditory Disturbances: 0-None Visual Disturbances: 3-Moderate Sensitivity Headache: 0-None Present CIWA-Ar Total Score: 11 BHS COWS - Scale Resting Pulse: 0= [place] 80 or Below Sweatin= Chills/Flushing Restless Observation: 1= Difficult to Sit Still Pupil Size: 0= Normal to Room Light Bone or Joint Aches: 2= Severe Diffuse Aches Runny Nose/ Eye Tearin= Nasal Congestion GI Upset > 30mins: 1= Stomach Cramp Tremor Observation of Outstretched Hands: 2= Slight Tremor Visible Yawning Observation: 2= >3x During Session Anxiety or Irritability: 2=Irritable/Anxious Goose Flesh Skin: 0=Smooth Skin COWS Score: 12 S Progress Note (SOAP) Subjective: irritable sweats shakes nausea Objective: 12/21/18 13:35 Vital Signs Temperature 98.8 F 12/21/18 09:41 Pulse Rate 61 12/21/18 09:41 Respiratory Rate 16 12/21/18 09:41 Blood Pressure 158/97 12/21/18 09:41 O2 Sat by Pulse Oximetry (%) Laboratory Tests 12/19/18 12/19/18 12/19/18 11:53 14:10 14:10 WBC 5.0 RBC 4.37 Hgb 14.1 Hct 41.2 MCV 94.3 MCH 32.3 MCHC 34.2 RDW 13.2 Plt Count 264 MPV 8.5 Sodium 142 Potassium 4.4 Chloride 106 Carbon Dioxide 32 Anion Gap 5 L BUN 5.4 L Creatinine 0.8 Est GFR (CKD-EPI)AfAm 100.33 Est GFR (CKD-EPI)NonAf 86.57 Random Glucose 87 Calcium 9.0 Total Bilirubin 0.3 AST 16 ALT 15 Alkaline Phosphatase 93 Total Protein 7.2 Albumin 3.4 POC Urine HCG, Qual Negative RPR Titer 12/19/18 14:10 WBC RBC Hgb Hct MCV MCH MCHC RDW Plt Count MPV Sodium Potassium Chloride Carbon Dioxide Anion Gap BUN Creatinine Est GFR (CKD-EPI)AfAm Est GFR (CKD-EPI)NonAf Random Glucose Calcium Total Bilirubin AST ALT Alkaline Phosphatase Total Protein Albumin POC Urine HCG, Qual RPR Titer Nonreactive aaox3 ambulating no acute distress Assessment: 12/21/18 13:35 withdrawals Plan: continue detox increase fluids jc brar prn
[2018-12-21] MEDS: THIAMINE HCL 100 MG TABLET (FP) PO SCH (23:45)
[2018-12-22] MEDS ORDERED: chlordiazePOXIDE HCL 10 MG CAPSULE PO PRN
[2018-12-22] MEDS: ONDANSETRON *ODT* 4 MG TABLET SL PRN (02:09)
[2018-12-22] MEDS: hydrOXYzine PAMOATE 25 MG CAPSULE (FP) PO PRN (06:03)
[2018-12-22] MEDS: METHOCARBAMOL 500 MG TABLET PO PRN (06:03)
[2018-12-22] MEDS: chlordiazePOXIDE HCL 10 MG CAPSULE PO SCH ×4 (06:03→22:41)
[2018-12-22] MEDS ORDERED: METHADONE (DETOX) 10 MG, METHADONE (DETOX) 5 MG PO ONE (10:00)
[2018-12-22] MEDS: NICOTINE 7 MG/24 HOURS TOPICAL PATCH TD SCH (10:33)
[2018-12-22] MEDS: PRENATAL VITAMINS W/ FOLIC ACID TABLET (FP) PO SCH (10:33)
[2018-12-22] MEDS ORDERED: METHADONE HCL 10 MG TABLET (FOR DETOX USE ONLY) ONE (10:40)
[2018-12-22] MEDS ORDERED: METHADONE HCL 5 MG TABLET (FOR DETOX USE ONLY) ONE (10:40)
--- NOTE | 2018-12-22 13:27 | PN ---
[facility] CIWA - CIWA Score Nausea/Vomitin-No Nausea/No Vomiting Muscle Tremors: 3 Anxiety: 1-Mildly Anxious Agitation: 1-Slight > Activity Paroxysmal Sweats: 2 Orientation: 0-Oriented Tacttile Disturbances: 0-None Auditory Disturbances: 0-None Visual Disturbances: 0-None Headache: 0-None Present CIWA-Ar Total Score: 7 BHS COWS - Scale Resting Pulse: 0= [place] 80 or Below Sweatin= Chills/Flushing Restless Observation: 0= Sits Still Pupil Size: 0= Normal to Room Light Bone or Joint Aches: 2= Severe Diffuse Aches Runny Nose/ Eye Tearin= Nasal Congestion GI Upset > 30mins: 0= None Tremor Observation of Outstretched Hands: 1= Tremor Vichy, Not Seen Yawning Observation: 1= 1-2x During Session Anxiety or Irritability: 2=Irritable/Anxious Goose Flesh Skin: 0=Smooth Skin COWS Score: 8 [facility] Progress Note (SOAP) Subjective: low back pain sweats agitation interrupted sleep Objective: 12/22/18 13:26 Vital Signs Temperature 98.4 F 12/22/18 09:26 Pulse Rate 69 12/22/18 09:26 Respiratory Rate 16 12/22/18 09:26 Blood Pressure 150/97 12/22/18 09:26 O2 Sat by Pulse Oximetry (%) aaox3 lying in bed no acute distress Assessment: 12/22/18 13:27 withdrawal sx Plan: lidocaine patch ordered continue detox
[2018-12-22] MEDS: LIDOCAINE 5% TOPICAL PATCH TP SCH (15:33)
[2018-12-22] MEDS: LIDOCAINE PATCH REMOVAL MC SCH (22:41)
[2018-12-22] MEDS: THIAMINE HCL 100 MG TABLET (FP) PO SCH (22:41)
[2018-12-22] MEDS: ACETAMINOPHEN 325 MG TABLET (FP) PO PRN (22:42)
[2018-12-23] MEDS: chlordiazePOXIDE HCL 10 MG CAPSULE PO SCH ×2 (07:20→17:56)
[2018-12-23] MEDS ORDERED: METHADONE HCL 10 MG TABLET (FOR DETOX USE ONLY) PO ONE (10:00)
[2018-12-23] MEDS: PRENATAL VITAMINS W/ FOLIC ACID TABLET (FP) PO SCH (10:22)
[2018-12-23] MEDS: NICOTINE 7 MG/24 HOURS TOPICAL PATCH TD SCH (10:23)
[2018-12-23] MEDS: LIDOCAINE 5% TOPICAL PATCH TP SCH (10:23)
[2018-12-23] MEDS ORDERED: TRIMETHOBENZAMIDE HCL 200MG/2ML INJ IM ONE (11:11)
--- NOTE | 2018-12-23 16:38 | PN ---
S CIWA - CIWA Score Nausea/Vomitin-No Nausea/No Vomiting Muscle Tremors: None Anxiety: 2 Agitation: 2 Paroxysmal Sweats: 2 Orientation: 0-Oriented Tacttile Disturbances: 0-None Auditory Disturbances: 0-None Visual Disturbances: 0-None Headache: 0-None Present CIWA-Ar Total Score: 6 BHS COWS - Scale Resting Pulse: 1= [place] 81-100 Sweatin= No chills or Flushing Restless Observation: 0= Sits Still Pupil Size: 0= Normal to Room Light Bone or Joint Aches: 1= Mild Discomfort Runny Nose/ Eye Tearin= None GI Upset > 30mins: 1= Stomach Cramp Tremor Observation of Outstretched Hands: 0= None Yawning Observation: 1= 1-2x During Session Anxiety or Irritability: 1=Feels Anxious/Irritable Goose Flesh Skin: 0=Smooth Skin COWS Score: 5 BHS Progress Note (SOAP) Subjective: Vomiting intermittently since last night, N/V, left shoulder pain, chills. Patient request axel linda (ordered daily) Objective: 12/23/18 16:35 Last Vital Signs Temp Pulse Resp BP Pulse Ox 99.1 F 90 18 129/76 12/23/18 13:25 12/23/18 13:25 12/23/18 13:25 12/23/18 13:25 Laboratory Tests 12/19/18 12/19/18 12/19/18 11:53 14:10 14:10 WBC 5.0 RBC 4.37 Hgb 14.1 Hct 41.2 MCV 94.3 MCH 32.3 MCHC 34.2 RDW 13.2 Plt Count 264 MPV 8.5 Sodium 142 Potassium 4.4 Chloride 106 Carbon Dioxide 32 Anion Gap 5 L BUN 5.4 L Creatinine 0.8 Est GFR (CKD-EPI)AfAm 100.33 Est GFR (CKD-EPI)NonAf 86.57 Random Glucose 87 Calcium 9.0 Total Bilirubin 0.3 AST 16 ALT 15 Alkaline Phosphatase 93 Total Protein 7.2 Albumin 3.4 POC Urine HCG, Qual Negative RPR Titer 12/19/18 14:10 WBC RBC Hgb Hct MCV MCH MCHC RDW Plt Count MPV Sodium Potassium Chloride Carbon Dioxide Anion Gap BUN Creatinine Est GFR (CKD-EPI)AfAm Est GFR (CKD-EPI)NonAf Random Glucose Calcium Total Bilirubin AST ALT Alkaline Phosphatase Total Protein Albumin POC Urine HCG, Qual RPR Titer Nonreactive Labs reviewed Assessment: 12/23/18 16:36 Withdrawal sxs Plan: Continue detox Encouraged PO water hydration N/V: Tigan 200mg IM x 1 dose, continue zofran SL prn
[2018-12-23] MEDS: LIDOCAINE PATCH REMOVAL MC SCH (22:40)
[2018-12-23] MEDS: THIAMINE HCL 100 MG TABLET (FP) PO SCH (22:40)
[2018-12-24] MEDS ORDERED: chlordiazePOXIDE HCL 10 MG CAPSULE PO ONE (05:00)
[2018-12-24] MEDS ORDERED: METHADONE HCL 5 MG TABLET (FOR DETOX USE ONLY) PO ONE (06:00)
[2018-12-24] MEDS: ONDANSETRON *ODT* 4 MG TABLET SL PRN (06:49)
[2018-12-24] MEDS: ACETAMINOPHEN 325 MG TABLET (FP) PO PRN (07:10)
[2018-12-24 07:20] VITALS: BP 141/78; PULSE 88; TEMP 98.6
--- NOTE | 2018-12-24 10:00 | DS ---
[facility] Detox Discharge Summary Admission Date: 12/19/18 Discharge Date: 12/24/18 - History Present History: Alcohol Dependence, Cocaine Dependence, Opioid Dependence - Physical Exam Results Vital Signs: Vital Signs Temperature 98.6 F 12/24/18 07:19 Pulse Rate 88 12/24/18 07:19 Respiratory Rate 18 12/24/18 07:19 Blood Pressure 141/78 12/24/18 07:19 O2 Sat by Pulse Oximetry (%) Pertinent Admission Physical Exam Findings: pt arrived in withdrawals Vital Signs Temperature 98.6 F 12/24/18 07:19 Pulse Rate 88 12/24/18 07:19 Respiratory Rate 18 12/24/18 07:19 Blood Pressure 141/78 12/24/18 07:19 O2 Sat by Pulse Oximetry (%) Laboratory Tests 12/19/18 12/19/18 12/19/18 11:53 14:10 14:10 WBC 5.0 RBC 4.37 Hgb 14.1 Hct 41.2 MCV 94.3 MCH 32.3 MCHC 34.2 RDW 13.2 Plt Count 264 MPV 8.5 Sodium 142 Potassium 4.4 Chloride 106 Carbon Dioxide 32 Anion Gap 5 L BUN 5.4 L Creatinine 0.8 Est GFR (CKD-EPI)AfAm 100.33 Est GFR (CKD-EPI)NonAf 86.57 Random Glucose 87 Calcium 9.0 Total Bilirubin 0.3 AST 16 ALT 15 Alkaline Phosphatase 93 Total Protein 7.2 Albumin 3.4 POC Urine HCG, Qual Negative RPR Titer 12/19/18 14:10 WBC RBC Hgb Hct MCV MCH MCHC RDW Plt Count MPV Sodium Potassium Chloride Carbon Dioxide Anion Gap BUN Creatinine Est GFR (CKD-EPI)AfAm Est GFR (CKD-EPI)NonAf Random Glucose Calcium Total Bilirubin AST ALT Alkaline Phosphatase Total Protein Albumin POC Urine HCG, Qual RPR Titer Nonreactive today pt is aaox3 ambulating no acute distress no s/s of withdrawals - Treatment Hospital Course: Detox Protocol Followed, Detoxed Safely, Responded well, Discharged Condition Good, Rehab Referral Accepted Patient has Accepted a Rehab Referral to: declined rehab; referral provided - Medication Discharge Medications: Ambulatory Orders NK [No Known Home Medication] 09/10/18 - Diagnosis (1) Alcohol dependence with uncomplicated withdrawal Current Visit: Yes Status: Chronic (2) Cocaine dependence, uncomplicated Current Visit: Yes Status: Chronic (3) Hypertension Current Visit: Yes Status: Chronic Qualifiers: Hypertension type: unspecified Qualified Code(s): I10 - Essential (primary ) hypertension (4) Opioid dependence with withdrawal Current Visit: Yes Status: Chronic (5) Nicotine dependence, uncomplicated Current Visit: Yes Status: Chronic Qualifiers: Nicotine product type: cigarettes Qualified Code(s): F17.210 - Nicotine dependence, cigarettes, uncomplicated (6) Obesity (BMI 30.0-34.9) Current Visit: Yes Status: Chronic (7) Bradycardia Current Visit: No Status: Chronic - AMA Did Patient Leave Against Medical Advice: No
== END 2018-12-24 10:02 | disposition home or self-care (01) | DRG 773 ==
LOC: YASAS 10:25 → Y6N 11:34
PROVIDERS: ADMIT Allergy & Immunology; ATTEND Allergy & Immunology
PROC: HZ2ZZZZ Detoxification Services for Substance Abuse Treatment (ICD-10-PCS; principal; 2018-12-19)
DX: F11.23 Opioid dependence with withdrawal (principal); F10.230 Alcohol dependence with withdrawal, uncomplicated; F14.20 Cocaine dependence, uncomplicated; F17.210 Nicotine dependence, cigarettes, uncomplicated; D64.9 Anemia, unspecified; I10 Essential (primary) hypertension; R00.1 Bradycardia, unspecified; M54.5 Low back pain; E66.9 Obesity, unspecified; Z68.41 Body mass index [BMI] 40.0-44.9, adult
CPT/HCPCS: 36415; 80053; 81025; 85027; 86593; Q0162